=== PATIENT | male | born 1960 | race Caucasian/White ===

== ENCOUNTER 2020-04-01 09:30 | Day surgery (SDC) | payer OTHER, SELFPAY ==
[~2020-04-01] VITALS: Ht 182.9 cm; Wt 113.4 kg
[2020-04-01] MEDS ORDERED: fentaNYL citrate 0.05 MG/ML VIAL ONE (11:02)
[2020-04-01] MEDS ORDERED: LIDOCAINE 2% 100 MG/5 ML UJET TP ONE (11:02)
[2020-04-01] MEDS ORDERED: MIDAZOLAM 2 MG/2 ML VIAL ONE (11:02)
[2020-04-01] MEDS ORDERED: diphenhydrAMINE 50 MG/ML VIAL ONE (11:02)
[2020-04-01] MEDS ORDERED: MIDAZOLAM 2 MG/2 ML VIAL IVP ONE (12:35)
[2020-04-01] MEDS ORDERED: fentaNYL citrate 0.05 MG/ML VIAL IVP ONE (12:35)
== END 2020-04-01 12:14 | disposition home or self-care (01) ==
LOC: MDS 09:30 → MFCC 09:36 → MDS 12:14
PROVIDERS: ATTEND Internal Medicine Gastroenterology
DX: R19.5 Other fecal abnormalities (principal); K63.5 Polyp of colon; E11.9 Type 2 diabetes mellitus without complications; I10 Essential (primary) hypertension; Z79.82 Long term (current) use of aspirin; Z79.84 Long term (current) use of oral hypoglycemic drugs; Z79.899 Other long term (current) drug therapy; Z98.890 Other specified postprocedural states; Z11.59 Encounter for screening for other viral diseases
CPT/HCPCS: 45385; J2250; J3010; U0003; J1200

== ENCOUNTER 2020-07-22 07:34 | Day surgery (SDC) | payer OTHER, SELFPAY ==
[~2020-07-22] VITALS: Ht 182.9 cm; Wt 110.2 kg
[2020-07-22] MEDS ORDERED: MIDAZOLAM 5 MG/5 ML VIAL ONE (08:31)
[2020-07-22] MEDS ORDERED: diphenhydrAMINE 50 MG/ML VIAL ONE (08:31)
[2020-07-22] MEDS ORDERED: fentaNYL citrate 0.05 MG/ML VIAL ONE (08:31)
[2020-07-22] MEDS ORDERED: LIDOCAINE 2% 100 MG/5 ML UJET TP ONE (08:32)
[2020-07-22] MEDS ORDERED: fentaNYL citrate 0.05 MG/ML VIAL IVP ONE (10:15)
[2020-07-22] MEDS ORDERED: MIDAZOLAM 2 MG/2 ML VIAL IVP ONE (10:15)
== END 2020-07-22 09:49 | disposition home or self-care (01) ==
LOC: MDS 07:34 → MFCC 07:34 → MDS 09:49
PROVIDERS: ATTEND Internal Medicine Gastroenterology
DX: R19.5 Other fecal abnormalities (principal); K63.5 Polyp of colon; E11.9 Type 2 diabetes mellitus without complications; I10 Essential (primary) hypertension; Z79.84 Long term (current) use of oral hypoglycemic drugs; Z79.899 Other long term (current) drug therapy; Z20.828 Contact with and (suspected) exposure to other viral communicable diseases
CPT/HCPCS: 45385; J2250; J3010; J7030; U0003; J1200

== ENCOUNTER 2021-09-08 08:07 | Day surgery (SDC) | payer OTHER, SELFPAY ==
[~2021-09-08] VITALS: Ht 182.9 cm; Wt 112.9 kg
[2021-09-08] MEDS ORDERED: LIDOCAINE 2% 100 MG/5 ML UJET TP ONE (09:17)
[2021-09-08] MEDS ORDERED: SIMETHICONE 40 MG/0.6 ML ONE (19:39)
== END 2021-09-08 10:40 | disposition home or self-care (01) ==
LOC: MDS 08:07 → MMU 08:07 → MDS 10:40
PROVIDERS: ATTEND Internal Medicine Gastroenterology
DX: R19.5 Other fecal abnormalities (principal); K63.5 Polyp of colon; Z86.010 Personal history of colon polyps; E11.9 Type 2 diabetes mellitus without complications; I10 Essential (primary) hypertension; Z79.84 Long term (current) use of oral hypoglycemic drugs; Z79.899 Other long term (current) drug therapy; Z20.822 Contact with and (suspected) exposure to COVID-19